=== PATIENT | male | born 1970 | race Hispanic/Latino ===

== ENCOUNTER 2021-12-04 16:46 | Emergency (ER) | payer SELFPAY ==
[~2021-12-04] VITALS: Ht 172.7 cm; Wt 81.8 kg
[2021-12-04] MEDS ORDERED: CEPHALEXIN500 M1 PO (18:34)
[2021-12-04 18:48] VITALS: BP 139/96
== END 2021-12-04 18:55 | disposition home or self-care (01) | DRG 605 ==
LOC: ED 16:46
DX: S61.233A Puncture wound without foreign body of left middle finger without damage to nail, initial encounter (principal); I10 Essential (primary) hypertension; W29.4XXA Contact with nail gun, initial encounter; Y93.89 Activity, other specified; Y92.009 Unspecified place in unspecified non-institutional (private) residence as the place of occurrence of the external cause

== ENCOUNTER 2024-03-07 09:25 | Emergency (ER) | payer SELFPAY ==
[~2024-03-07] VITALS: Ht 172.7 cm; Wt 86.0 kg
[2024-03-07] VITALS (8 sets, daily range): BP systolic 156–190; BP diastolic 103–132
[~2024-03-07 09:25] MED LIST: CEPHALEXIN500 M1 PO
[2024-03-07] MEDS ORDERED: OXYMETAZOLINE HCL 15 ML/BTL ONE (09:35)
[2024-03-07 10:00] LABS: BASO% 0.1 % (0-3); HEMATOCRIT 47.9 % (39.0-50.0); HEMOGLOBIN 16.9 g/dl (14.0-18.0); IMMATURE GRANULOCYTES 0.7 % (0.0-5.0); LYMPH% 16.5 % (15-41); MEAN CELL VOLUME 94.5 fL CALC (80.0-100.0); MEAN CORPUSCULAR HGB 33.3 pG CALC (26.0-32.0); MEAN CORPUSCULAR HGB CONC 35.3 g/dL CAL (32.0-36.0); NEUT# 6.97 thou/uL (1.82-7.42); NEUT% 71.7 % (42-76); RED BLOOD COUNT 5.07 mill/uL (4.70-6.10); RED CELL DISTRI WIDTH 11.8 % (11.5-15.5)
[2024-03-07 10:27] LABS: ALBUMIN 4.7 g/dL (3.2-5.0); BILIRUBIN, TOTAL 0.6 mg/dL (0.2-1.3); CREATININE 0.7 mg/dL (0.7-1.3); TOTAL PROTEIN 7.7 g/dL (6.3-8.2)
== END 2024-03-07 11:15 | disposition home or self-care (01) | DRG 151 ==
LOC: ED 09:25
PROVIDERS: Family Medicine
DX: R04.0 Epistaxis (principal); I10 Essential (primary) hypertension; E66.01 Morbid (severe) obesity due to excess calories; F17.200 Nicotine dependence, unspecified, uncomplicated